=== PATIENT | female | born 1980 | race Caucasian/White ===

== ENCOUNTER 2022-04-26 10:23 | Outpatient (CLI) | payer MEDICARE, OTHER | END 2022-04-26 10:24 | disposition home or self-care (01) | LOC: CSHMAMMO 10:23 | PROVIDERS: ATTEND Physician Assistant | DX: Z12.31 Encounter for screening mammogram for malignant neoplasm of breast (principal) | CPT/HCPCS: 77063; 77067 ==

== ENCOUNTER 2023-12-02 10:10 | Outpatient (CLI) | payer MEDICAID, OTHER | END 2023-12-02 10:11 | disposition home or self-care (01) | LOC: CSHMAMMO 10:10 | PROVIDERS: ATTEND Physician Assistant | DX: Z12.31 Encounter for screening mammogram for malignant neoplasm of breast (principal) | CPT/HCPCS: 77063; 77067 ==

== ENCOUNTER 2025-01-26 12:34 | Outpatient (CLI) | payer OTHER | END 2025-01-26 12:35 | disposition home or self-care (01) | LOC: CSHMAMMO 12:34 | PROVIDERS: ATTEND Physician Assistant | DX: Z12.31 Encounter for screening mammogram for malignant neoplasm of breast (principal); Z80.3 Family history of malignant neoplasm of breast | CPT/HCPCS: 77063; 77067 ==